=== PATIENT | female | born 1955 | race Caucasian/White ===

== ENCOUNTER 2016-10-16 15:53 | Emergency (ER) | payer BC ==
[~2016-10-16] VITALS: Ht 180.3 cm; Wt 80.0 kg
[2016-10-16] MEDS ORDERED: KETOROLAC 60 MG/2 ML (TORADOL) VIAL IM ONE (16:10)
[2016-10-16] MEDS ORDERED: diphenhydrAMINE 50 MG/ML INJ (BENADRYL) IM ONE (16:10)
[2016-10-16] MEDS ORDERED: PROMETHAZINE 25 MG/ML (PHENERGAN) 1 ML VIAL IM ONE (16:10)
[2016-10-16 16:36] VITALS: BP 158/104
== END 2016-10-16 16:37 | disposition home or self-care (01) ==
LOC: ED 15:54
DX: R51 Headache (principal)
CPT/HCPCS: 96372; 99282; J1200; J1885; J2550

== ENCOUNTER → 2016-12-05 | Outpatient (CLI) | payer BC ==
[~2016-12-05] MED LIST: ALBU8.5H2 IH; ALEN70TA47 PO; ATOR10TA PO; CYAN500T44 PO; FLUT1DIS2 IH; LISI1TAB6 PO; METO10TA3 PO; MMT17NA; MONT10TA21 PO; OMEP10CA4 PO; OMEP20CA12 PO; POTA10TA6 PO; ZLP10T PO; ZOLM5TAB8 PO; [UNRECOGNIZED DRUG - OTHER]
--- NOTE | 2016-12-05 09:09 | Diagnostic Imaging Report ---
PROCEDURE: US abdomen complete. TECHNIQUE: Multiple real-time grayscale images were obtained over the abdomen in various projections. INDICATION: Abdominal pain and nausea x2 months. Comparison with 11/29/2014. FINDINGS: Liver appears normal. Portal and hepatic vein are patent with normal flow. Gallbladder is not distended. Previously reported polyp along the posterior wall is again identified and unchanged in appearance measuring approximately 6 mm. There are at least three other small polyps demonstrated on today's exam measuring less than 5 mm. No mobile gallstones demonstrated. The gallbladder wall measures 3 mm in width. No pericholecystic edema. The head of the pancreas is visualized and appears normal. Spleen appears normal. Aorta and vena cava are normal. Right kidney measures 11.3 x 5.8 x 4.4 cm. Left kidney measures 11.5 x 5.4 x 4.8 cm. Due to body habitus the detail of the kidneys is limited. No obvious renal masses demonstrated. IMPRESSION: 1. Findings consistent with polyposis of the gallbladder with some increase in number of polyps since previous exam though largest polyp has not increased in size. Gallbladder wall, upper limits of normal in thickness. 2. No evidence of gallstones. Bile ducts are not dilated. Dictated by: Dictated on workstation # [id number]
== END ==
LOC: RAD 08:14
PROVIDERS: ATTEND Family Medicine
DX: R11.0 Nausea (principal)
CPT/HCPCS: 76700